=== PATIENT | male | born 1985 | race Caucasian/White ===

== ENCOUNTER → 2017-09-23 11:30 | Outpatient (CLI) | payer OTHER, SELFPAY ==
--- NOTE | 2017-09-23 11:36 | RAD_ITS ---
STUDY: X-RAY - RIGHT ANKLE REASON FOR EXAM: Male, 32 years old. Medial and lateral ankle pain after twisting injury. TECHNIQUE: 3 view(s) of the ankle. COMPARISON: None. FINDINGS: Normal visualized distal tibia and fibula. Normal medial and lateral malleoli. Normal tibiotalar articulation and ankle mortise. Normal visualized talus and calcaneus. The visualized subtalar, talonavicular, calcaneocuboid and tarsal articulations are normal. There is no demonstrated fracture. There is anterolateral soft tissue swelling. RAD/Ankle min 3 Views IMPRESSION: Anterolateral soft tissue swelling. No acute fracture of the right ankle. Electronically Signed: Jm Montalvo MD at 16:01 EDT , Service support ,
--- NOTE | 2017-09-23 11:36 | RAD_ITS ---
STUDY: X-RAY - RIGHT FOOT CLINICAL: Male, 32 years old. Twisting injury. TECHNIQUE: 3 view(s) of the foot. COMPARISON: None. FINDINGS: Normal talus, calcaneus, and tarsal bones. Normal visualized subtalar, talonavicular, calcaneocuboid, tarsal and tarsometatarsal articulations. Normal metatarsi. Normal metatarsophalangeal joint of the great toe. There is a bipartite tibial sesamoid. Normal fibular sesamoid bone. Normal interphalangeal joint of the great toe. Normal phalanges of the great toe. Normal second through fifth metatarsophalangeal joints. Normal interphalangeal joints and phalanges of the lesser toes. There is mild superficial soft tissue swelling of the forefoot. There is no demonstrated fracture. RAD/Foot min 3 Views IMPRESSION: Mild superficial soft tissue swelling of the forefoot. No acute fracture of the right foot. Electronically Signed: Jm Montalvo MD at 16:00 EDT , Service support ,
== END ==
PROVIDERS: Visit Provider Physician Assistant
DX: S93.401A Sprain of unspecified ligament of right ankle, initial encounter (principal); S93.601A Unspecified sprain of right foot, initial encounter
CPT/HCPCS: 73610; 73630

== ENCOUNTER → 2017-11-25 13:29 | Outpatient (CLI) | payer BC, OTHER, SELFPAY ==
--- NOTE | 2017-11-25 13:57 | MRI_ITS ---
STUDY: MRI RIGHT ANKLE WITHOUT CONTRAST REASON FOR EXAM: Male, 32 years old. Pain. Injury 7 weeks ago TECHNIQUE: Standardized fat and water weighted pulse sequences were obtained in all 3 orthogonal planes. COMPARISON: X-ray September 23, 2017. FINDINGS: Normal subcutis adipose space. There is marrow edema of the medial malleolus, series 9 images 15/32- 16/32. There is mild marrow edema of the neck of the talus, series 9 image 18/32. There is subchondral edema of the medial talar dome. No cartilaginous defect. Normal posterior tibialis tendon. Normal flexor digitorum longus tendon. Normal flexor hallucis longus tendon. Normal peroneus longus and brevis tendons. Normal tibialis anterior tendon. Normal extensor hallucis longus tendon. Normal extensor digitorum longus tendons. Normal Achilles tendon and teno-osseous insertion. Normal plantar fascia. Normal plantar calcaneal tubercles. Normal intrinsic muscles of the rearfoot. Normal distal tibiofibular syndesmotic ligamentous complex. Normal lateral ligamentous complex. Normal subtalar ligaments and sinus tarsi. There is interstitial edema within the tibiotalar ligamentous components of the deltoid ligamentous complex consistent with a partial deltoid ligamentous sprain. Normal plantar calcaneonavicular (spring) ligament. There is a joint effusion of the tibiotalar articulation with capsular distension. There is suggestion of 0.6 cm loose body in the medial aspect, series 7 image 17/22. There is os trigonum. Normal subtalar articulations. Normal talonavicular articulation. Normal calcaneocuboid articulation. Normal navicular-cuneiform articulations. MRI/Lower Ext Joint Only (Routine) IMPRESSION: Bone bruising of the medial malleolus and talus. Subchondral edema in the talar dome without focal osteochondral defect Medial sprain. Joint effusion with possible loose body. Electronically Signed: Antoni Gonzalez MD at 21:43 EDT , Service support ,
== END ==
PROVIDERS: Visit Provider Podiatrist
DX: S93.401A Sprain of unspecified ligament of right ankle, initial encounter (principal); S93.601A Unspecified sprain of right foot, initial encounter
CPT/HCPCS: 73721